=== PATIENT | male | born 1985 | race Caucasian/White ===

== ENCOUNTER → 2021-08-26 | Outpatient (CLI) | payer BC | LOC: SLEEPLAB 18:00 | PROVIDERS: ATTEND Family Medicine | DX: G47.33 Obstructive sleep apnea (adult) (pediatric) (principal); R53.83 Other fatigue; R06.83 Snoring; G47.00 Insomnia, unspecified; E66.9 Obesity, unspecified; Z68.34 Body mass index [BMI] 34.0-34.9, adult | CPT/HCPCS: 95806 ==